=== PATIENT | female | born 1990 | race Hispanic/Latino ===

== ENCOUNTER 2017-09-12 11:50 | Outpatient (CLI) | payer MEDICAID, OTHER ==
[2017-09-12 12:10] VITALS: BP 100/70
[2017-09-12] MEDS ORDERED: LACTATED RINGERS 1,000 ML ONE (12:58)
[2017-09-12] MEDS ORDERED: LACTATED RINGERS 500 ML IV ONE (13:00)
[2017-09-12] MEDS ORDERED: BRETHINE IVP ONE (14:06)
[2017-09-12] MEDS ORDERED: BRETHINE ONE (14:10)
== END 2017-09-12 15:39 | disposition home or self-care (01) ==
LOC: TRG 11:50
PROVIDERS: ATTEND Obstetrics & Gynecology
DX: O47.03 False labor before 37 completed weeks of gestation, third trimester (principal); Z3A.36 36 weeks gestation of pregnancy
CPT/HCPCS: 59025; 96372; J3105; J7120